=== PATIENT | male | born 1950 | race Caucasian/White ===

== ENCOUNTER 2021-06-02 20:37 | Emergency (ER) | payer MEDICARE, MEDICAID, SELFPAY ==
[2021-06-02] VITALS (7 sets, daily range): BP systolic 91–110; BP diastolic 65–76; PULSE 67–167; RESP 20–25; TEMP 36.1; O2SAT 93–100; BMI 25.1
--- NOTE | 2021-06-02 20:52 | EKG12_ITS ---
Test Reason : SOB Blood Pressure : / mmHG Vent. Rate : 167 BPM Atrial Rate : 166 BPM P-R Int : 000 ms QRS Dur : 216 ms QT Int : 344 ms P-R-T Axes : 000 264 086 degrees QTc Int : 573 ms Poor data quality, interpretation may be adversely affected Wide QRS tachycardia -SVT with aberrancy Right bundle branch block Lateral infarct , age undetermined Inferior infarct , age undetermined Abnormal ECG Confirmed by SOFIA KIRKLAND, MARY ([id number]), marketing editor GLADYS WHARTON ([id number]) on 06/06/2021 9:42:34 AM Referred By: HARPREET Confirmed By:MARY BLACK MD
--- NOTE | 2021-06-02 20:53 | ED.VIS.CHEST ---
HPI History of Present Illness Chief Complaint: Shortness of Breath Informant: patient and EMS Onset/Context/Timing Onset: Today and Hours Activity at onset: sudden Timing: Continuous Current Severity: Mild Maximum Severity: Mild Relieved By: Nothing Narrative Narrative: 71 male from a [facility] very limited informant. Reportedly was receiving aerosol treatment at the [facility] with the tachycardia. And was sent in by squad. Squad was in route to [facility] and diverted to come here. Patient himself is extremely limited informant can't really give me much history. He has never been to this facility before does have the old records on him. Unknown if he has any history of this. [facility] Medical History (Updated 06/02/21 @ 22:[address] Sylvain Henriquez MD) Altered mental status Anxiety Arthritis Ataxia Atherosclerotic heart disease Cardiac defibrillator in place CHF (congestive heart failure) Chronic hepatitis COPD (chronic obstructive pulmonary disease) CVA (cerebral vascular accident) Depressive disorder Diverticulitis of intestine Dysphagia Embolism and thrombosis of unspecified site Emphysema of lung Hearing loss Hemiparesis History of myocardial infarction Hydrocephalus Hyperlipidemia Hypertension Insomnia Ischemic cardiomyopathy Paroxysmal atrial fibrillation PVD (peripheral vascular disease) Vitamin B12 deficiency anemia Vitamin D deficiency Home Medications acetaminophen [Tylenol] 650 mg FEEDING TUBE Q4H PRN 06/02/21 [History Last Taken Unknown] amiodarone 200 mg FEEDING TUBE DAILY 06/02/21 [History Last Taken Unknown] apixaban 5 mg FEEDING TUBE BID 06/02/21 [History Last Taken Unknown] aspirin 81 mg FEEDING TUBE DAILY 06/02/21 [History Last Taken Unknown] cholecalciferol (vitamin D3) 25 mcg FEEDING TUBE DAILY 06/02/21 [History Last Taken Unknown] cyanocobalamin (vitamin B-12) [Vitamin B-12] 500 mcg FEEDING TUBE DAILY 06/02/21 [History Last Taken Unknown] escitalopram oxalate 10 mg FEEDING TUBE DAILY 06/02/21 [History Last Taken Unknown] ipratropium-albuterol 3 ml INHALATION Q4H PRN 06/02/21 [History Last Taken Unknown] levetiracetam [Keppra] 500 mg PO BID 06/02/21 [History Last Taken Unknown] metoprolol tartrate 25 mg FEEDING TUBE BID 06/02/21 [History Last Taken Unknown] montelukast 10 mg FEEDING TUBE DAILY 06/02/21 [History Last Taken Unknown] simvastatin 20 mg FEEDING TUBE DAILY 06/02/21 [History Last Taken Unknown] testosterone 3 mg TRANSDERMAL DAILY 06/02/21 [History Last Taken Unknown] trazodone 25 mg PO QHS 06/02/21 [History Last Taken Unknown] Allergy/AdvReac Type Severity Reaction Status Date / Time ibuprofen Allergy PT UNSURE Verified 06/02/21 20:45 OF REACTION Iodinated Contrast Media Allergy PT UNSURE Verified 06/02/21 20:45 OF REACTION shellfish derived Allergy PT UNSURE Verified 06/02/21 20:45 OF REACTION shrimp Allergy PT UNSURE Verified 06/02/21 20:45 OF REACTION Social History Smoking Status: Unknown if ever smoked ROS ROS ED ROS Narrative Limited due to the patient's mental status. Review of Systems ROS Unobtainable: due to mental status EXAM Physical Exam Narrative Exam Narrative: 71-year-old male vital signs blood pressure is 97/72 squad was given him an IV fluid bolus in route. Pulse ox 100% on 4 L no hypoxia. Temperature 96.9. Heart rate is 167. H EENT exam without dentition. Moist mucous membranes. Neck nontender no JVD. No lymphadenopathy. Lungs clear to auscultation bilaterally. Heart tachycardic rate almost 170. Abdomen soft nontender normal bowel sounds no peritoneal signs. Moving all 4 extremities. Calves are nontender without edema or cords. Neurologically is awake. His eyes are open. He is moving all 4 extremities. He is extremely hard of hearing. He is a very limited informant. Const Vital Signs: 06/02/21 20:38 06/02/21 21:02 06/02/21 21:03 Temperature 96.9 F L Temperature Source Temporal Pulse Rate 167 H Respiratory Rate 24 H Respiratory Effort Normal Respiratory Depth Normal Respiratory Pattern Normal Blood Pressure 97/72 Blood Pressure Mean 80 Pulse Ox 100 93 Oxygen Delivery Method Nasal Cannula Nasal Cannula Nasal Cannula Oxygen Flow Rate (L/min) 4 3 4 06/02/21 21:04 06/02/21 21:07 06/02/21 21:14 Temperature Temperature Source Pulse Rate 167 H 70 68 Respiratory Rate 21 H 21 H 25 H Respiratory Effort Respiratory Depth Respiratory Pattern Blood Pressure 91/76 110/71 99/68 Blood Pressure Mean 81 84 78 Pulse Ox 93 100 100 Oxygen Delivery Method Nasal Cannula Nasal Cannula Venturi Mask Oxygen Flow Rate (L/min) 4 4 4 06/02/21 21:19 Temperature Temperature Source Pulse Rate 69 Respiratory Rate 21 H Respiratory Effort Respiratory Depth Respiratory Pattern Blood Pressure 98/66 Blood Pressure Mean 76 Pulse Ox 99 Oxygen Delivery Method Nasal Cannula Oxygen Flow Rate (L/min) 4 Positive well nourished and well developed; Negative for cachectic, contractures or unkempt General Appearance ED: well developed; Negative for unkempt, cachectic, contractures, NAD or pallor Nutritional Appearance: Negative for cachectic HEENT Reports moist mucous membranes normocephalic and atraumatic; Negative for trauma or tenderness Eyes PERRL and EOMs intact bilaterally Neck no lymphadenopathy, supple and no JVD General: Negative for tenderness Chest Wall inspection of chest normal and palpation of chest normal Resp normal respiratory effort and clear to auscultation bilaterally Effort and Inspection: respiratory distress Auscultation: Negative for rales, rhonchi or wheezes Cardio Rate: tachycardic GI normal to inspection, nondistended, normoactive bowel sounds, soft to palpation, non-tender, non-distended and no masses GI Narrative: Well-healed midline exploratory laparotomy incision. Feeding tube left upper quadrant. Back/Spine no CVA tenderness Extremity normal to inspection General Extremety ED: Negative for edema or tenderness General Extremity: Negative for edema Neuro No oriented x3 Sensorium / Orientation: awake, alert and oriented to person; Negative for oriented to place or oriented to time Motor Exam: strength 5/5 throughout Psych mental status grossly normal Appearance: Negative for unkempt Attitude: No agitated Mood & Affect: Negative for depressed, anxious or tearful Skin no rashes or lesions noted and no wounds General Skin Exam: Negative for jaundice or pallor MDM MDM MDM Narrative Medical decision making narrative: 71-year-old male from a nursing facility with a tachycardia and hypotension. The rhythm on the monitor and on his EKG is a tachycardia rate of 167 there is a right bundle branch block this could be an SVT this could be a tachycardia with a bundle branch block it could be V. tach it could be A. fib with RVR and aberrancy. Given those factors and his hypotension he'll be sedated with etomidate and cardioverted. Cardiac work-up will be undertaken. Due to the patient's tachycardia, hypotension and rhythm he was consciously sedated with etomidate a total of 8 mg and cardioverted. On the first attempt he went into a sinus rhythm rate of about 70. Tolerated procedure well. His blood pressure immediately improved. His oxygenation stayed stable the entire time. Repeat exam patient is resting comfortably at 1030. Blood pressure is around 100 systolic. I spoke to the [facility] this is the patient's baseline labs his most recent hemoglobin was 7.67.7 today. He has extensive past medical history he had a large intracranial hemorrhage in November of this year which sent him to the [facility] for lengthy hospitalizations he has been in and out of that facility plus [facility] plus now the nursing facility [facility] I spoke to their nurse there who knows the patient well. He currently is on blood thinners Eliquis. And he gets chronic tube feeds. I then spoke to the patient's we went over his current condition and his past medical history I do not really have anything specifically new to admit him for tonight he has been cardioverted out of the A. fib. She is very comfortable with that. She said these are his baseline vital signs. She is hopeful that he can make a recovery but she knows he had a severe intracranial bleed and had to have a shunt placed as she knows his prognosis is a difficult one at best. Lab Data Attestation: I reviewed the patient's lab results. Lab results narrative: CBC shows a white count of 6. Hemoglobin is 7.7. Platelet count of 131. PT of 18 INR 1.7 PTT of 35. Electrolytes show a gap of 5 BUN of 32 creatinine 0.9. Glucose of 105. Troponin is 31. His TSH is 8.67. Labs: Laboratory Results - last 24 hr 06/02/21 06/02/21 06/02/21 20:50 20:50 20:50 WBC 6.6 RBC 2.38 L Hgb 7.7 L Hct 25.1 L MCV 105.5 H MCH 32.4 H MCHC 30.7 L RDW Std Deviation 73.6 H RDW Coeff of Kayden 19.6 H Plt Count 131 L MPV 12.1 H Immature Gran % (Auto) 0.300 Neut % (Auto) 84.2 H Lymph % (Auto) 7.9 L [place] % (Auto) 6.7 Eos % (Auto) 0.6 Baso % (Auto) 0.3 Absolute Neuts (auto) 5.5 Absolute Lymphs (auto) 0.52 L Nucleated RBC % 0.3 PT 18.8 H INR 1.7 APTT 35.6 Sodium 140 Potassium 3.5 Chloride 105 Carbon Dioxide 30.0 Anion Gap 5 BUN 32 H Creatinine 0.98 Estim Creat Clear Calc 72.57 Est GFR (MDRD) Af Amer 96 Est GFR (MDRD) Non-Af 80 BUN/Creatinine Ratio 32.6 H Glucose 105 Calcium 8.2 L Troponin I High Sens 31 TSH 8.67 H Radiography Chest X-Ray - ED: 1 View and Read by ED Physician Diagnostic Testing: Clinical Impression(s) from Imaging Studies Chest X-Ray 06/02/21 21:20 IMPRESSION: 1. Right pleural effusion and overlying airspace disease favored to be infectious in etiology. Overlying atelectasis could potentially have a similar appearance. Follow-up to ensure resolution is recommended. 2. Suspected right IJ central venous catheter tip is above the level of the superior vena cava. Consider advancing 10 cm. Electronically Signed: New Roy DO at 22:03 EST Tel , Service support , Chest x-ray, portable, single view interpreted myself shows a left-sided defibrillator. And right-sided pleural effusion. Otherwise no acute process. Rhythm Strip Rhythm Strip: Sinus Tach Rate: 167 Ectopy: None EKG Initial EKG: Attestation: I personally reviewed and interpreted this EKG as follows: Interpretation: No Acute Injury Pattern Comments: Wide-complex tachycardia rate of 167. Rate dependent ischemia in the lateral leads. Right bundle branch block. Prior EKG tracings: not available for review Follow-up EKG: Interpretation: Sinus Rhythm Comments: Post cardioversion EKG shows sinus rhythm with a first-degree AV block with a CA interval 258 with an incomplete left bundle branch block nonspecific ST-T wave abnormalities. Discharge Plan Triage Chief Complaint: Shortness of Breath ED Provider: Sylvain Henriquez Dx/Rx/DC Orders Clinical Impression: Atrial fibrillation with RVR, Anemia in chronic illness, History of intracranial hemorrhage, Deafness, History of CHF (congestive heart failure) Instructions: ED AFIB Prescriptions: No Action acetaminophen [Tylenol] 325 mg Tablet 650 mg feeding tube Q4H PRN (Reason: Pain) RF: 0 amiodarone 200 mg Tablet 200 mg feeding tube DAILY RF: 0 cyanocobalamin (vitamin B-12) [Vitamin B-12] 500 mcg Tablet 500 mcg feeding tube DAILY RF: 0 ipratropium-albuterol 0.5 mg-3 mg(2.5 mg base)/3 mL Solution For Nebulization 3 ml INHALATION Q4H PRN (Reason: sob) RF: 0 trazodone 50 mg Tablet 25 mg PO QHS RF: 0 simvastatin 20 mg Tablet 20 mg feeding tube DAILY RF: 0 aspirin 81 mg Tablet,Chewable 81 mg feeding tube DAILY RF: 0 montelukast 10 mg Tablet 10 mg feeding tube DAILY RF: 0 escitalopram oxalate 10 mg Tablet 10 mg feeding tube DAILY RF: 0 levetiracetam [Keppra] 100 mg/mL Solution 500 mg PO BID RF: 0 metoprolol tartrate 25 mg Tablet 25 mg feeding tube BID RF: 0 cholecalciferol (vitamin D3) 25 mcg (1,000 unit) Tablet 25 mcg feeding tube DAILY RF: 0 testosterone 1.62 % (20.25 mg/1.25 gram) Gel In Packet 3 mg transdermal DAILY RF: 0 apixaban 5 mg Tablet 5 mg feeding tube BID RF: 0 Primary Care Provider: Marge Johnston Referrals: Marge Johnston MD [Primary Care Provider] - As soon as possible Activity Restrictions/Additional Instructions: I discussed the patient's at length. She is comfortable with him being discharged back to the nursing facility. Make sure he is reevaluated by your medical administrative specialist in the next several days. All the labs we did tonight were his baseline. He was consciously sedated in the ER and cardioverted out of A. fib back to a sinus rhythm. Disposition Disposition: Home, Self Care
[2021-06-02] MEDS: Etomidate 20 MG/10 ML Vial 10 MG IV (21:05)
[2021-06-02 21:08] LABS: Absolute Lymphocyte Count 0.52 X10^3/uL (0.83-4.51); Absolute Neutrophil Count 5.5 X10^3/uL (2.0-7.7); Basophil# 0.02 X10^3/uL; Basophil% 0.3 % (0-1); Eosinophil# 0.04 X10^3/uL; Eosinophils% 0.6 % (0-5); Hematocrit 25.1 % (40-54); Hemoglobin 7.7 g/dL (13.0-16.5); Lymphocyte # 0.52 X10^3/ul (0.83-4.51); Lymphocyte % 7.9 % (19-41); Mean Corp Hgb Conc 30.7 g/dL (32-36); Mean Corpuscular Hgb 32.4 pg (27.0-32.0); Mean Corpuscular Volume 105.5 fL (80-94); Mean Platelet Vol. 12.1 fl (6.2-12.0); Monocyte# 0.44 X10^3/uL; Monocyte% 6.7 % (0-10); NRBC Flagged by Analyzer 0.3 % (0-5); Neutrophil # 5.53 X10^3/uL (2.7-7.7); Neutrophil % 84.2 % (47-70); POSITIVE DIFFERENTIAL YES; POSITIVE MORPHOLOGY YES; Platelet Count 131 K/mm3 (150-450); RBC Distribution Width CV 19.6 % (11.6-14.6); RBC Distribution Width SD 73.6 fl (35.1-43.9); Red Blood Count 2.38 M/mm3 (4.6-6.2); White Blood Count 6.6 K/mm3 (4.4-11.0)
[2021-06-02 21:09] LABS: Differential Indicated SCAN CRITERIA MET
--- NOTE | 2021-06-02 21:10 | ED.RN ---
Pt is having bleeding from pressure wounds under his scrotum and on his buttocks.
[2021-06-02 21:13] LABS: International Normalized Ratio 1.7; Prothrombin Time (Protime)PT. 18.8 SECONDS (11.7-14.9)
[2021-06-02 21:14] LABS: Partial Thromboplast Time 35.6 Seconds (24.1-36.2)
--- NOTE | 2021-06-02 21:20 | RAD_ITS ---
INDICATION: chest pain EXAMINATION/TECHNIQUE: X-RAY - XR Chest 1 View COMPARISON: None. FINDINGS: LINES/DEVICES: Left chest pacing device with leads projecting over the right atrium and right ventricle. There are external heart monitoring wires. Potential right IJ central venous catheter projects over the right clavicle, above the level of the superior vena cava. LUNGS: There is a right pleural effusion and overlying airspace disease. Left lung is clear. Right upper lobe is normal. No pneumothorax. MEDIASTINUM AND CARDIOVASCULAR STRUCTURES: Normal size and contour of the cardiomediastinal silhouette. No evidence of pulmonary vascular congestion. BONES AND SOFT TISSUES: No abnormality within limits of the exam. RAD/Chest 1 View (Portable) IMPRESSION: 1. Right pleural effusion and overlying airspace disease favored to be infectious in etiology. Overlying atelectasis could potentially have a similar appearance. Follow-up to ensure resolution is recommended. 2. Suspected right IJ central venous catheter tip is above the level of the superior vena cava. Consider advancing 10 cm. Electronically Signed: New Roy DO at 22:03 EST Tel , Service support ,
[2021-06-02 21:38] LABS: Anion Gap 5 (5-15); BUN 32 mg/dL (7-18); BUN/Creat Ratio 32.6 RATIO (10-20); Calcium,Total 8.2 mg/dL (8.5-10.1); Chloride 105 mmol/L (98-107); Creatinine, Serum 0.98 mg/dL (0.70-1.30); EST Glomerular Filtration Rate 80 mL/min (>60); Est Glom Filt Rate - Afr Amer 96 mL/min (>60); Estimated Creatinine Clearance 72.57 ml/min; Glucose 105 mg/dL (74-106); Potassium 3.5 mmol/L (3.5-5.1); Sodium Level 140 mmol/L (136-145); Thyroid Stim Hormone (TSH) 8.67 uIU/mL (0.358-3.74); Troponin-I HS 31 pg/mL (3.0-78.0)
--- NOTE | 2021-06-02 21:52 | EKG12_ITS ---
Test Reason : REPEAT Blood Pressure : / mmHG Vent. Rate : 069 BPM Atrial Rate : 069 BPM P-R Int : 258 ms QRS Dur : 112 ms QT Int : 420 ms P-R-T Axes : 087 058 -79 degrees QTc Int : 450 ms Sinus rhythm with 1st degree A-V block Incomplete left bundle branch block ST depression, consider subendocardial injury Nonspecific T wave abnormality Abnormal ECG Confirmed by SOFIA KIRKLAND, MARY ([id number]), video editor GLADYS WHARTON ([id number]) on 06/06/2021 9:41:34 AM Referred By: HARPREET Confirmed By:MARY BLACK MD
[2021-06-02 22:35] LABS: Differential Comment SCANNED
== END 2021-06-02 23:55 | disposition home or self-care (01) ==
PROVIDERS: Emergency Provider Emergency Medicine; PCP Internal Medicine Geriatric Medicine
DX: I48.0 Paroxysmal atrial fibrillation (principal); D63.8 Anemia in other chronic diseases classified elsewhere; I11.0 Hypertensive heart disease with heart failure; I50.9 Heart failure, unspecified; I95.9 Hypotension, unspecified; J90 Pleural effusion, not elsewhere classified; I45.2 Bifascicular block; I44.0 Atrioventricular block, first degree; E55.9 Vitamin D deficiency, unspecified; E78.5 Hyperlipidemia, unspecified; F32.A Depression, unspecified; F41.9 Anxiety disorder, unspecified; G91.9 Hydrocephalus, unspecified; I73.9 Peripheral vascular disease, unspecified; I25.10 Atherosclerotic heart disease of native coronary artery without angina pectoris; I25.2 Old myocardial infarction; I25.5 Ischemic cardiomyopathy; J44.9 Chronic obstructive pulmonary disease, unspecified; G47.00 Insomnia, unspecified; M19.90 Unspecified osteoarthritis, unspecified site; Z87.19 Personal history of other diseases of the digestive system; Z86.73 Personal history of transient ischemic attack (TIA), and cerebral infarction without residual deficits; Z95.810 Presence of automatic (implantable) cardiac defibrillator; Z79.01 Long term (current) use of anticoagulants; Z79.82 Long term (current) use of aspirin; Z79.899 Other long term (current) drug therapy
CPT/HCPCS: 92960; 36591; 71045; 80048; 84443; 84484; 85025; 85610; 85730; 93005; 96374; 99285; A4216